=== PATIENT | female | born 1990 | race Hispanic/Latino ===

== ENCOUNTER 2017-08-20 09:09 | Outpatient (CLI) | payer OTHER | END 2017-08-20 09:10 | disposition home or self-care (01) | LOC: BICULT 09:09 | PROVIDERS: ATTEND Family Medicine | DX: Z34.82 Encounter for supervision of other normal pregnancy, second trimester (principal); Z3A.20 20 weeks gestation of pregnancy | CPT/HCPCS: 76805 ==

== ENCOUNTER 2020-12-02 20:36 | Emergency (ER) | payer OTHER | END 2020-12-02 23:00 | disposition home or self-care (01) | LOC: ERS 20:36 | DX: O99.341 Other mental disorders complicating pregnancy, first trimester (principal); F41.9 Anxiety disorder, unspecified; O23.11 Infections of bladder in pregnancy, first trimester; Z3A.01 Less than 8 weeks gestation of pregnancy | CPT/HCPCS: 81003; 81015; 81025; 87077; 87086; 87186; 99283 ==

== ENCOUNTER 2021-09-08 18:46 | Emergency (ER) | payer OTHER ==
[2021-09-08] MEDS ORDERED: Acetaminophen 500 MG TAB ONE (19:58)
== END 2021-09-08 21:05 | disposition home or self-care (01) ==
LOC: ERS 18:46
DX: R51.9 Headache, unspecified (principal); I10 Essential (primary) hypertension
CPT/HCPCS: 99283

== ENCOUNTER 2025-01-21 20:09 | Emergency (ER) | payer OTHER | END 2025-01-21 21:40 | disposition home or self-care (01) | LOC: ERS 20:09 | DX: G56.22 Lesion of ulnar nerve, left upper limb (principal); F17.290 Nicotine dependence, other tobacco product, uncomplicated | CPT/HCPCS: 99283 ==